=== PATIENT | female | born 1990 | race Caucasian/White ===

== ENCOUNTER 2018-11-23 10:10 | Emergency (ER) | payer SELFPAY ==
[2018-11-23 10:20] VITALS: BP 114/77
--- NOTE | 2018-11-23 10:21 | ER Document Report ---
ED ENT - General Chief Complaint: Sore Throat Stated Complaint: SORE THROAT, RIGHT EAR PAIN Time Seen by Provider: 11/23/18 10:21 Primary Care Provider: [facility] [Provider Group] - Follow up as needed TRAVEL OUTSIDE OF THE [place] IN LAST 30 DAYS: No - HPI Notes: 28-year-old female to the emergency department with complaints of sore throat, nonproductive cough for the past week with associated right ear pain. She states that she is actually had right ear pain for over 2 years. She states that she was seen in the emergency department over 2 years ago and told she had fluid in the ear and put on antibiotics. She states that despite taking all those antibiotics at that time she is continued to have right ear fullness and right pain. She states that she has a sensation like she is underwater and wants to pop it at all times. She does not take anything for this pain on a regular basis. However when her sore throat started about a week ago this pain increased. She admits to a little bit of nasal congestion as well. Denies any fevers or chills. Denies sick contacts. She smokes. - Related Data Allergies/Adverse Reactions: No Known Allergies Allergy (Verified 11/23/18 10:20) Home Medications: motrin/tylenol prn Past Medical History - General Information source: Patient - Social History Smoking Status: Current Every Day Smoker Chew tobacco use (# tins/day): No Frequency of alcohol use: None Drug Abuse: None Family History: Reviewed & Not Pertinent Patient has suicidal ideation: No Patient has homicidal ideation: No Physical Exam - Vital signs Vitals: Temp Pulse Resp BP Pulse Ox 97.9 F 74 18 114/77 98 11/23/18 10:17 11/23/18 10:17 11/23/18 10:17 11/23/18 10:17 11/23/18 10:17 - General General appearance: Appears well, Alert In distress: None - HEENT Head: Normocephalic, Atraumatic Eyes: Normal Pupils: PERRL Ears: Normal, Tragus tenderness Tympanic membrane: Serous effusion - There is a serous effusion to the right TM with no evidence for erythema, bulging, purulent effusion, perforation. Left TM is clear Sinus: Normal Nasal: Clear rhinorrhea Mouth/Lips: Normal Mucous membranes: Normal Pharynx: Erythema, Exudate - There is beefy erythema to bilateral tonsils with noted exudate. Mild tonsillar hypertrophy that is symmetric approximately 1+. There is no evidence for peritonsillar abscess. There is no evidence for ludwigs angina. Airway is grossly patent.. No: Retropharyngeal abscess, Tonsillar hypertrophy, Uvular edema, Potential airway comprom. Neck: Normal, Supple. No: Meningismus - Respiratory Respiratory status: No respiratory distress Chest status: Nontender Breath sounds: Normal. No: Rales, Rhonchi, Stridor, Wheezing Chest palpation: Normal - Cardiovascular Rhythm: Regular Heart sounds: Normal auscultation Murmur: No - Back Back: Normal, Nontender - Neurological Neuro grossly intact: Yes Cognition: Normal Orientation: AAOx4 [place] Coma Scale Eye Opening: Spontaneous Surinder Coma Scale Verbal: Oriented [place] Coma Scale Motor: Obeys Commands [place] Coma Scale Total: 15 Speech: Normal Motor strength normal: LUE, RUE, LLE, RLE Sensory: Normal - Psychological Associated symptoms: Normal affect, Normal mood - Skin Skin Temperature: Warm Skin Moisture: Dry Skin Color: Normal Course - Re-evaluation Re-evalutation: Microbiology 11/23/18 10:30 Throat Culture - Preliminary Throat Laboratory 11/23/18 10:37 Group A Strep Rapid NEGATIVE Impression: Tonsillitis, ear pain. ear pain is chronic is likely related to eustachian tube dysfunction -- will start on flonase. As for her tonsillitis, will start on Azithromycin while awaiting throat culture. Pt agrees with the plan. Encouraged to return if symptoms worsen at all. - Vital Signs Vital signs: Temp Pulse Resp BP Pulse Ox 97.9 F 74 18 114/77 98 11/23/18 10:17 11/23/18 10:17 11/23/18 10:17 11/23/18 10:17 11/23/18 10:17 Discharge - Discharge Clinical Impression: Right ear pain, Eustachian tube dysfunction Acute tonsillitis Qualifiers: Pharyngitis/tonsillitis etiology: unspecified etiology Qualified Code(s): J03.90 - Acute tonsillitis, unspecified Condition: Stable Disposition: HOME, SELF-CARE Instructions: Tonsillitis ([facility]) Additional Instructions: TAKE MEDICINES PRESCRIBED. FOLLOW UP WITH ENT LISTED. PUSH FLUIDS. RETURN IF WORSENING SYMPTOMS. Prescriptions: Ibuprofen [Motrin 600 mg Tablet] 600 mg PO Q8HP PRN #24 tablet PRN Reason: Azithromycin 500 mg PO DAILY #5 tablet Fluticasone Propionate [Flonase Allergy Relief] 2 spray NS DAILY #1 spray.susp Forms: Return to Work Referrals: [facility] [Provider Group] - Follow up as needed
== END 2018-11-23 11:40 | disposition home or self-care (01) ==
LOC: ER 10:10
DX: J03.90 Acute tonsillitis, unspecified (principal); H69.91 Unspecified Eustachian tube disorder, right ear; H92.01 Otalgia, right ear; R05 Cough; R09.81 Nasal congestion; F17.200 Nicotine dependence, unspecified, uncomplicated
CPT/HCPCS: 87070; 87077; 87880; 99283

== ENCOUNTER 2019-05-11 22:07 | Emergency (ER) | payer SELFPAY ==
[2019-05-11] MEDS ORDERED: ACETAMINOPHEN 325 MG TABLET PO ONE (22:16)
[2019-05-11] MEDS ORDERED: OXYCODONE HCL IR 5 MG TABLET PO ONE (23:52)
[2019-05-11] MEDS ORDERED: PENICILLIN V POTASSIUM 500 MG TABLET PO ONE (23:52)
[2019-05-11] MEDS ORDERED: HYDROCODONE/ACETAMINOPHEN 5-325 MG (6 TAB/ER DISP) PO PRN (23:52)
--- NOTE | 2019-05-12 | ER Document Report ---
HPI - HPI Time Seen by Provider: 05/11/19 23:46 Pain Level: 5 Context: Patient is a 29-year-old female that comes emergency department for chief complaint of dental pain and slight swelling of the left side of the face. She states this started 2 days ago. She states she does have a dentist but her appointment was postponed because of viral quarantine. Patient states that she has had similar problems in the past. She has a known fractured tooth on the left upper aspect. She denies sore throat, neck pain, difficulty swallowing or breathing, fever, or any other complaints. She denies . She denies any daily prescribed occasions or diagnosed medical history otherwise. - REPRODUCTIVE Reproductive: DENIES: : Past Medical History - General Information source: Patient - Social History Smoking Status: Current Every Day Smoker Frequency of alcohol use: None Drug Abuse: None Lives with: Family Family History: Reviewed & Not Pertinent Patient has suicidal ideation: No Patient has homicidal ideation: No - Medical History Medical History: Negative Surgical Hx: Negative - Immunizations Immunizations up to date: Yes Hx Diphtheria, Pertussis, Tetanus Vaccination: Yes Vertical Provider Document - CONSTITUTIONAL General Appearance: WD/WN, No Apparent Distress - INFECTION CONTROL TRAVEL OUTSIDE OF THE [place] IN LAST 30 DAYS: No - HEENT HEENT: Atraumatic, Normocephalic. negative: Normal ENT Exam - Normal oropharyngeal exam except for dental exam, see mouth diagram below. There is very subtle swelling of the left side of the jaw/face. No induration or fluctuance, no redness to the face. Patent airway, normal uvula. Normal eyes, normal nasal exam, normal ears. Mouth Diagram: 1 - Dental caries with adjacent erythema and tenderness with mild swelling of the gumline but no induration, fluctuance, or noted abscess. - NECK Neck: Normal Inspection - No lymphadenopathy noted - RESPIRATORY Respiratory: Breath Sounds Normal, No Respiratory Distress, Chest Non-Tender - CARDIOVASCULAR Cardiovascular: Regular Rate, Regular Rhythm - GI/ABDOMEN Gastrointestinal: Abdomen Soft, Abdomen Non-Tender. negative: Abdomen Tender - BACK Back: Normal Inspection - MUSCULOSKELETAL/EXTREMETIES Musculoskeletal/Extremeties: MAEW, FROM, Non-Tender - NEURO Level of Consciousness: Awake, Alert, Appropriate Motor/Sensory: No Motor Deficit, No Sensory Deficit - DERM Integumentary: Warm, Dry, No Rash Course - Re-evaluation Re-evalutation: Patient with very subtle swelling to the left side of the face, oropharyngeal exam consistent with infection but there is no noted abscess. Neck evaluation is normal. Patient will be started on antibiotics for treatment of dental infection, discussed dental follow-up which she already has established, discussed return precautions. Patient states understanding and agreement. Stable at time of discharge. - Vital Signs Vital signs: Temp Pulse Resp BP Pulse Ox 98.6 F 78 24 H 142/83 H 100 05/11/19 22:10 05/11/19 22:10 05/11/19 22:10 05/11/19 22:10 05/11/19 22:10 Discharge - Discharge Clinical Impression: Pain, dental, Dental infection Condition: Stable Disposition: HOME, SELF-CARE Instructions: Oral Narcotic Medication ([facility]) Additional Instructions: Your exam indicates a dental infection. Please take antibiotics as prescribed to completion. Call your dentist for close follow-up and additional management where this will continue to happen. Return if you worsen including increased on the face, fever, or any other concerning or worsening symptoms. Prescriptions: Penicillin V Potassium [Penicillin Vk 500 mg Tablet] 500 mg PO BID #20 tablet
[2019-05-12 00:35] VITALS: BP 111/80
== END 2019-05-12 00:25 | disposition home or self-care (01) ==
LOC: ER 22:07
DX: K04.7 Periapical abscess without sinus (principal); K02.9 Dental caries, unspecified; K08.89 Other specified disorders of teeth and supporting structures; F17.200 Nicotine dependence, unspecified, uncomplicated
CPT/HCPCS: 99282

== ENCOUNTER 2019-05-12 10:22 | Emergency (ER) | payer SELFPAY ==
[2019-05-12] MEDS ORDERED: NORMAL SALINE 1000 ML 1,000 ML IV ONE (10:36)
[2019-05-12] MEDS ORDERED: CLINDAMYCIN 900 MG/D5W RTU 900 MG/50 ML RTUPB IV ONE (10:36)
[2019-05-12 10:55] LABS: ABSOLUTE EOSINOPHILS # (AUTO) 0.1 10^3/uL (0.0-0.6); ABSOLUTE LYMPHOCYTES (AUTO) 1.7 10^3/uL (0.5-4.7); ABSOLUTE MONOCYTES (AUTO) 0.7 10^3/uL (0.1-1.4); ABSOLUTE NEUT (AUTO) 5.7 10^3/uL (1.7-8.2); BASOPHILS % (AUTO) 0.6 % (0-2); EOSINOPHILS % (AUTO) 0.8 % (0-6); HEMATOCRIT 40.2 % (36.0-47.0); HEMOGLOBIN 13.8 g/dL (12.0-15.5); LYMPHOCYTES % (AUTO) 20.7 % (13-45); MEAN CORPUSCULAR HEMOGLOBIN 30.8 pg (27.0-33.4); MEAN CORPUSCULAR HGB CONC 34.3 g/dL (32.0-36.0); MEAN CORPUSCULAR VOLUME 90 fl (80-97); MONOCYTES % (AUTO) 8.1 % (3-13); PLATELET COUNT 153 10^3/uL (150-450); RED BLOOD COUNT 4.47 10^6/uL (3.72-5.28); RED CELL DISTRIBUTION WIDTH 13.7 % (11.5-14.0); SEGMENTED NEUTROPHILS % (AUTO) 69.8 % (42-78); TOTAL CELLS COUNTED % (AUTO) 100 %; WHITE BLOOD COUNT 8.2 10^3/uL (4.0-10.5)
--- NOTE | 2019-05-12 10:55 | ER Document Report ---
ED General - General Chief Complaint: Abscess Stated Complaint: FACIAL SWELLING Notes: Patient is a 29-year-old white female with a past medical history of poor dentition who was seen here last night and diagnosed with a dental abscess who returns today with worsening. She states she received a prescription for Pen- Vee K last night, she dropped it off at the pharmacy this morning but has not picked it up yet and started it. She states between her visit here last night and today she is had a worsening swelling of the left cheek area. She states she is also noticed within the past hour or so some drainage from the affected tooth. She describes it as "poison". Foul tasting. She denies any fever, nausea vomiting, diarrhea, chills, night sweats, difficulty breathing, trouble with secretions, tongue or throat swelling. TRAVEL OUTSIDE OF THE [place] IN LAST 30 DAYS: No - Related Data Allergies/Adverse Reactions: No Known Allergies Allergy (Verified 05/12/19 10:31) Past Medical History - Social History Smoking Status: Current Every Day Smoker Chew tobacco use (# tins/day): No Frequency of alcohol use: None Drug Abuse: None Family History: Reviewed & Not Pertinent Patient has suicidal ideation: No Patient has homicidal ideation: No - Immunizations Immunizations up to date: Yes Hx Diphtheria, Pertussis, Tetanus Vaccination: Yes Review of Systems - Review of Systems EENT: Dental problem -: Yes All other systems reviewed and negative Physical Exam - Vital signs Vitals: Temp Pulse Resp BP Pulse Ox 98.5 F 94 16 126/77 H 98 05/12/19 10:25 05/12/19 10:25 05/12/19 10:25 05/12/19 10:25 05/12/19 10:25 - General General appearance: Appears well, Alert In distress: None - HEENT Head: Normocephalic, Atraumatic Eyes: Normal Conjunctiva: Normal Extraocular movements intact: Yes Pupils: PERRL Ears: Normal External canal: Normal Tympanic membrane: Normal Sinus: Normal Nasal: Normal Mouth/Lips: Other - Poor dentition throughout, broken tooth #12 with scant drainage from inside the tooth. No gingival abscess formation or swelling. There is some surrounding gingival erythema. The area is tender to percussion. Some mild external swelling of the face in the same region as the tooth. No fluctuance. Mucous membranes: Normal Pharynx: Normal - Respiratory Respiratory status: No respiratory distress Chest status: Nontender Breath sounds: Normal Chest palpation: Normal - Cardiovascular Rhythm: Regular Heart sounds: Normal auscultation - Neurological Neuro grossly intact: Yes Cognition: Normal Orientation: AAOx4 [place] Coma Scale Eye Opening: Spontaneous [place] Coma Scale Verbal: Oriented Surinder Coma Scale Motor: Obeys Commands [place] Coma Scale Total: 15 Speech: Normal - Psychological Associated symptoms: Normal affect, Normal mood - Skin Skin Temperature: Warm Skin Moisture: Dry Skin Color: Normal Course - Re-evaluation Re-evalutation: 05/12/19 11:57 No leukocytosis. Patient is nontoxic in appearance. She stable and appropriate for discharge and outpatient follow-up. She received IV clindamycin here. She was previously given pain medications. She will fill her antibiotic prescription today and begin taking as discussed. We will give her a prescription for Peridex as well. Counseled her at length regarding the importance of outpatient follow-up and advised she return here or any ER immediately with any new, persistent or worsening symptoms. She verbalized understood and agreed. - Vital Signs Vital signs: Temp Pulse Resp BP Pulse Ox 98.5 F 94 16 126/77 H 98 05/12/19 10:25 05/12/19 10:25 05/12/19 10:25 05/12/19 10:25 05/12/19 10:25 - Laboratory Result Diagrams: 05/12/19 10:40 05/12/19 10:40 Laboratory results interpreted by me: 05/12/19 10:40 Sodium 136.9 L Chloride 108 H Discharge - Discharge Clinical Impression: Dental abscess Condition: Stable Disposition: HOME, SELF-CARE Instructions: Dental Infection or Abscess ([facility]) Additional Instructions: Please see your dentist as soon as possible. Please return here or any ER immediately with any new, persistent or worsening symptoms. Prescriptions: Chlorhexidine Gluconate [Peridex] 15 ml MM BID #120 ml
[2019-05-12 11:17] LABS: ANION GAP 5 (5-19); BLOOD UREA NITROGEN 7 mg/dL (7-20); CALCIUM 9.1 mg/dL (8.4-10.2); CARBON DIOXIDE 24 mmol/L (22-30); CHLORIDE 108 mmol/L (98-107); GLUCOSE 89 mg/dL (75-110); POTASSIUM 4.3 mmol/L (3.6-5.0)
[2019-05-12 12:14] VITALS: BP 118/78
== END 2019-05-12 12:12 | disposition home or self-care (01) ==
LOC: ER 10:22
DX: K04.7 Periapical abscess without sinus (principal); R22.0 Localized swelling, mass and lump, head; K02.9 Dental caries, unspecified; F17.200 Nicotine dependence, unspecified, uncomplicated
CPT/HCPCS: 99283; 96365; 36415; 87040; 85025; 80048; J3490; J7030